=== PATIENT | female | born 1970 | race Caucasian/White ===

== ENCOUNTER 2022-06-25 18:09 | Emergency (ER) | payer MEDICARE, MEDICAID, SELFPAY ==
--- NOTE | 2022-06-25 18:22 | PC.NURSE ---
pt to ED room 2 via wc by CONNER Bravo and transported to [facility] without complications. pt hooked to monitor and EKG is being obtained.
--- NOTE | 2022-06-25 18:28 | ECG_ITS ---
APPROVED REPORT Exam: Resting ECG HR:59 bpm ECG Measurements Heart Rate 59 AXES GA 163 P 48 QRSd 109 QRS 36 QT 451 T 54 QTc 451 Conclusion SINUS BRADYCARDIA INCOMPLETE RIGHT BUNDLE BRANCH BLOCK [90+ ms QRS DURATION, TERMINAL R IN V1/V2, 40+ ms S IN I/aVL/V4/V5/V6] BORDERLINE ECG UNCONFIRMED REPORT Electronically signed by : Alfredo Lester MD 06/26/2022 21:07:53
--- NOTE | 2022-06-25 18:35 | HMH.EDGENADL ---
ED Disposition Clinical Impression: Chest wall pain, Atypical pneumonia Anemia Qualifiers: Anemia type: unspecified type Qualified Code(s): D64.9 - Anemia, unspecified Disposition: Home, Self-Care Condition on Discharge: Good Instructions: DI for Pneumonia -- Adult Additional Instructions: Tramadol as needed for pain. Tessalon as needed for cough. Zithromax, antibiotic, as prescribed. Follow-up with your primary care provider for further care of your chest wall pain, pneumonia, and anemia. Additional instructions for CONTROLLED SUBSTANCES: You have been prescribed a medication that is a controlled substance. Controlled substances include pain medications known as opiates and sedative nerve medications known as benzodiazepines. Tramadol, fioricet, and gabapentin are also controlled substances. Some common opiates include: Codeine (such as Tylenol #3) Hydrocodone (Vicodin, Lortab, Lorcet, [place]) Oxycodone (Percocet, Percodan, Oxycodone, Oxy IR) Some common benzodiazepines include: Diazepam (Valium) Lorazepam (Ativan) Alprazolam (Xanax) Clonazepam (Klonopin) Oxazepam (Serax) All of these controlled substances are highly addictive and frequently abused. Misuse can and frequently does lead to addiction as well as overdose and . Medication should be stored in a locked cabinet or other secure storage unit. Do not store the medication in a motor vehicle. Short term supplies, 3 days or less, are prescribed because of the highly addictive nature of the medication. Any of the controlled substance medication NOT taken should be disposed of properly and NOT SAVED. The recommended method of disposing of unused medications is: Place the medicines in a sealable plastic bag. If the medicine is a solid, crush it or add water to dissolve it. Add something undesirable (cat litter, coffee grounds, etc.) Dispose of sealed bag in household trash Do not flush or pour unused medicines down a sink or drain. Controlled substances should not be shared, given away or sold. Because of the addictive nature and frequent abuse, these medications are sometimes stolen. These medications should be kept in a safe place where they cannot be stolen. Do not keep them in your car or purse. Lost or stolen prescriptions for controlled substances WILL NOT BE REFILLED in this emergency department, regardless of whether a police report was filed. Prescriptions: Benzonatate [Benzonatate 100mg cap] 100 mg PO TIDP PRN #15 cap PRN Reason: Cough Transmission Status: Pending to [id number] Azithromycin [Zithromax 250mg tab] 250 mg PO DAILY #4 tab Transmission Status: Pending to [id number] Referrals: Shelly Gilbert [Primary Care Provider] - - Critical Care Critical Care Time: No Attestation: On , the high probability of a clinically significant, sudden or life threatening deterioration of the following system(s) required my full and direct attention, intervention and personal management. The time I documented below is in addition to time spent performing reported procedures but includes the following listed in this critical care notation. Medical Decision Making - Mateusz Inquiry Pt receiving controlled substance: No Vital Signs: 06/25/22 18:39 Temperature 98.6 F Temperature Source Oral Pulse Rate [Apical] 63 Respiratory Rate 18 Blood Pressure [Right Arm] 111/73 Blood Pressure Mean [Right Arm] 85 Blood Pressure Source [Right Arm] Automatic Cuff Blood Pressure Position [Right Arm] Sitting 02 Sat by Pulse Oximetry 95 Oxygen Delivery Method Room Air - Lab Data Lab Results 06/25/22 18:35: WBC 10.1, RBC 3.44 L, Hgb 9.9 L, Hct 33.2 L, MCV 96.4, MCH 28.7, MCHC 29.8 L, RDW 20.1 H, Plt Count 320, MPV 9.1, Neut % (Auto) 65.1, Lymph % (Auto) 24.3, [place] % (Auto) 6.9, Eos % (Auto) 2.7, Baso % (Auto) 1.0, Neut # (Auto) 6.5, Lymph # (Auto) 2.4, [place] # (Auto) 0.7, Eos # (Auto) 0.3, Baso # (Auto) 0.1
[2022-06-25 18:39] VITALS: BP 111/73; PULSE 63; RESP 18; TEMP 37; O2SAT 95; BMI 43.5
--- NOTE | 2022-06-25 18:50 | XR_ITS ---
PROCEDURE INFORMATION: Exam: XR Chest Exam date and time: 06/25/2022 7:16 PM Age: 51 years old Clinical indication: Sternal or substernal pain; Additional info: Chest pain SOA TECHNIQUE: Imaging protocol: Radiologic exam of the chest. Views: 1 view. COMPARISON: CR CXR CHEST(2 VIEWS-NOT PORTABLE) 04/18/2016 12:44 AM FINDINGS: Lungs: Low lung volumes with associated vascular crowding and bibasilar atelectasis. Stigmata of old granulomatous disease. Pleural spaces: Unremarkable. No pleural effusion. No pneumothorax. Heart/Mediastinum: Unremarkable. No cardiomegaly. Bones/joints: Unremarkable. IMPRESSION: No acute findings.
[2022-06-25 18:58] LABS: Microscopic, Urine URINE MICROSCOPIC (MICROSCOPIC)
--- NOTE | 2022-06-25 18:59 | PC.NURSE ---
KEIKO MORRELL at for pt julianal
[2022-06-25 19:00] LABS: Basophils # 0.1 K/mm3 (0-0.2); Eosinophils # 0.3 K/mm3 (0.0-0.4); Eosinophils % 2.7 % (0.1-12.0); Hematocrit 33.2 % (37.0-47.0); Hemoglobin 9.9 g/dL (12.2-16.2); Lymphocytes # 2.4 K/mm3 (0.7-4.5); Lymphocytes % 24.3 % (10-50); Mean Corpuscular HGB Conc 29.8 g/dL (31.8-35.4); Mean Corpuscular Hemoglobin 28.7 pg (27.0-31.2); Mean Corpuscular Volume 96.4 fl (81-99); Mean Platelet Volume 9.1 fl (7.4-10.4); Monocytes # 0.7 K/mm3 (0.1-1.0); Monocytes % 6.9 % (1.7-9.3); Neutrophils # 6.5 K/mm3 (1.8-7.8); Neutrophils % 65.1 % (37.0-80.0); Platelet Count 320 K/mm3 (142-424); Red Blood Count 3.44 M/mm3 (4.20-5.40); Red Cell Distribution Width 20.1 % (11.5-17.5); White Blood Count 10.1 K/mm3 (4.8-10.8)
[2022-06-25 19:04] LABS: Anion Gap 10.5 mEq/L (5-15); Blood Urea Nitrogen 6 mg/dl (7-17); Calcium 8.9 mg/dl (8.4-10.2); Carbon Dioxide 24 mmol/L (22.0-30.0); Chloride 104 mmol/L (98-107); Creatinine Clearance Estimated 123 mL/min (50-200); Estimated Glomerular Filt Rate 130 ml/min (>60); GFR (African American) 157 ML/MIN (>60); Glucose 115 mg/dl (74-100); Lactic Acid 1.8 mmol/L (0.7-2.1); Lipase 65 U/L (23-300); Magnesium 1.4 mg/dl (1.6-2.3); Potassium 3.5 mmoL/L (3.5-5.1); Sodium 135 mmol/L (136-145)
--- NOTE | 2022-06-25 19:08 | CT_ITS ---
PROCEDURE INFORMATION: Exam: CTA Chest With Contrast Exam date and time: 06/25/2022 7:10 PM Age: 51 years old Clinical indication: Pain; Chest pressure; Additional info: Chest injury, hemoptysis TECHNIQUE: Imaging protocol: Computed tomographic angiography of the chest with contrast. 3D rendering (Not supervised by radiologist): MIP and/or 3D reconstructed images were created by the technologist. Radiation optimization: All CT scans at this facility use at least one of these dose optimization techniques: automated exposure control; mA and/or kV adjustment per patient size (includes targeted exams where dose is matched to clinical indication); or iterative reconstruction. Contrast material: ISOVUE 307; Contrast volume: 70 ml; Contrast route: INTRAVENOUS (IV); COMPARISON: CR CXR CHEST(2 VIEWS-NOT PORTABLE) 04/18/2016 12:44 AM FINDINGS: Pulmonary arteries: Enlarged pulmonary arteries likely represent chronic pulmonary arterial hypertension. No pulmonary emboli. Aorta: The aorta demonstrates mild atherosclerotic disease. Lungs: Mild scarring and atelectasis in the lower lungs. Scattered ground-glass pulmonary opacities are favored to represent atypical pneumonia, such as COVID-19. Pleural spaces: Unremarkable. No pneumothorax. No pleural effusion. Heart: Borderline cardiomegaly. Lymph nodes: Unremarkable. No enlarged lymph nodes. Liver: Hepatic steatosis. Gallbladder and bile ducts: Gallbladder is absent. Kidneys and ureters: Low attenuation renal lesions measuring up to 2.5 cm in diameter are incompletely characterized, but are likely cysts. No followup imaging is warranted. Bones/joints: Old bilateral rib fractures. Soft tissues: Unremarkable. Other findings: Stigmata of old granulomatous disease. IMPRESSION: 1. No pulmonary emboli. 2. Scattered ground-glass pulmonary opacities are favored to represent atypical pneumonia, such as COVID-19. 3. Hepatic steatosis. COMMENTS: Consistent with the [employer]'s Incidental Findings Committee white paper (J Am Alessandra Radiol 2018): Any incidental renal lesion less than 1 cm or classified as too small to characterize, or any incidental cystic renal lesion characterized as simple-appearing, is likely benign. No follow-up imaging is recommended for these lesions per consensus recommendations based on imaging criteria.
[2022-06-25 19:09] LABS: Appearance,Urine CLEAR (Clear); Bilirubin,Urine Negative (Negative); Blood, Urine Negative (Negative); Color,Urine YELLOW (Yellow); Glucose,Urine (UA) Negative (Negative); Ketones,Urine Negative (Negative); Leukocyte Esterase,Urine TRACE (Negative); Nitrate,Urine Negative (Negative); Protein,Urine Negative (Negative); Specific Gravity, Urine <= 1.005 (1.005-1.030); Urobilinogen,Urine 0.2 EU/dl (0.2)
[2022-06-25 19:09] LABS: C-Reactive Protein 15.6 mg/L (0-4)
[2022-06-25 19:13] LABS: Coronavirus 19, PCR Not Detected (NotDetected); Influenza A, PCR Not Detected (NotDetected); Influenza B, PCR Not Detected (NotDetected)
[2022-06-25 19:18] LABS: Alanine Aminotransferase 26 U/L (12-78); Aspartate Amino Transferase 51 U/L (14-36)
[2022-06-25 19:19] LABS: Ammonia 25 umol/L (9-30)
[2022-06-25 19:19] LABS: Albumin Level 3.6 g/dl (3.5-5.0); Alkaline Phosphatase 116 U/L (38-126); Bilirubin,Direct 0.7 mg/dl (0.0-0.4); Bilirubin,Total 0.7 mg/dl (0.2-1.3); Total Protein,Serum 7.6 g/dl (6.3-8.2)
[2022-06-25 19:20] LABS: Troponin I < 0.01 ng/ml (0.00-0.034)
[2022-06-25 19:23] LABS: Procalcitonin 0.086 ng/mL (0.0-2.0)
[2022-06-25 19:27] LABS: Erythrocyte Sedimentation Rate 44 mm/hr (0-30)
[2022-06-25 19:53] LABS: Bacteria,Urine Trace /lpf
[2022-06-25 19:59] LABS: NT Pro Brain Natriuretic Pep. 55.7 pg/mL (0-125)
--- NOTE | 2022-06-25 20:27 | PC.NURSE ---
Family at BS
[2022-06-25 20:45] VITALS: BP 110/70; PULSE 60; RESP 16; TEMP 36.8; O2SAT 99
[2022-06-25 21:22] LABS: Amphetamine/Metha Screen,Urine Negative ng/ml (<1000); Barbiturates Screen,Urine Negative ng/ml (<200)
[2022-06-25 21:23] LABS: Benzodiazepines Screen,Urine Negative ng/ml (<200); Cannabinoid Screen,Urine Negative ng/ml (<50)
[2022-06-25 21:24] LABS: Cocaine Screen,Urine Negative ng/ml (<300)
[2022-06-25 21:25] LABS: Methadone Screen,Urine Positive ng/ml (<300); Opiate Screen,Urine Negative ng/ml (<300)
[2022-06-25 21:29] LABS: Phencyclidine Screen,Urine Negative ng/ml (<25)
== END 2022-06-25 20:46 | disposition home or self-care (01) ==
PROVIDERS: Emergency Provider Emergency Medicine; PCP Nurse Practitioner
DX: R07.82 Intercostal pain (principal); J18.9 Pneumonia, unspecified organism; D64.9 Anemia, unspecified; W19.XXXD Unspecified fall, subsequent encounter; Z88.5 Allergy status to narcotic agent; F11.90 Opioid use, unspecified, uncomplicated; L98.9 Disorder of the skin and subcutaneous tissue, unspecified; K76.0 Fatty (change of) liver, not elsewhere classified; Z88.6 Allergy status to analgesic agent; F41.9 Anxiety disorder, unspecified; F32.A Depression, unspecified; Z72.0 Tobacco use
CPT/HCPCS: 71045; 71275; 80048; 80076; 80305; 81001; 82140; 83605; 83690; 83735; 83880; 84145; 84484; 85025; 85651; 86140; 93005; 96365; 99284; C9803; Q9967; U0003; U0005

== ENCOUNTER 2022-07-26 20:51 | Emergency (ER) | payer MEDICARE, MEDICAID, SELFPAY ==
[2022-07-26] VITALS (8 sets, daily range): BP systolic 91–119; BP diastolic 50–82; PULSE 67–79; RESP 16–18; TEMP 36.6–37.1; O2SAT 93–99; BMI 40.3
--- NOTE | 2022-07-26 21:00 | ECG_ITS ---
APPROVED REPORT Exam: Resting ECG HR:72 bpm ECG Measurements Heart Rate 72 AXES FL 178 P 51 QRSd 104 QRS 55 QT 400 T 52 QTc 425 Conclusion SINUS RHYTHM LOW QRS VOLTAGE IN PRECORDIAL LEADS [QRS DEFLECTION < 1.0 mV IN CHEST LEADS] INCOMPLETE RIGHT BUNDLE BRANCH BLOCK [90+ ms QRS DURATION, TERMINAL R IN V1/V2, 40+ ms S IN I/aVL/V4/V5/V6] BORDERLINE ECG INTERPRETATION BASED ON A DEFAULT AGE OF 40 YEARS UNCONFIRMED REPORT Electronically signed by : Alfredo Lester MD 07/31/2022 11:23:27
--- NOTE | 2022-07-26 21:06 | XR_ITS ---
PROCEDURE INFORMATION: Exam: XR Chest Exam date and time: 07/26/2022 9:11 PM Age: 51 years old Clinical indication: Sternal or substernal pain; Additional info: Cp TECHNIQUE: Imaging protocol: Radiologic exam of the chest. Views: 1 view. COMPARISON: CR XR CHEST PORTABLE 06/25/2022 7:16 PM FINDINGS: Lungs: Unremarkable. No consolidation. Pleural spaces: Unremarkable. No pleural effusion. No pneumothorax. Heart/Mediastinum: Cardiomegaly. Bones/joints: Unremarkable. IMPRESSION: No acute findings.
--- NOTE | 2022-07-26 21:10 | CT_ITS ---
PROCEDURE INFORMATION: Exam: CT Abdomen And Pelvis With Contrast Exam date and time: 07/26/2022 9:43 PM Age: 51 years old Clinical indication: Abdominal pain; Other: Pelvis and groin area left; Prior surgery; Surgery date: 6+ months; Surgery type: Tubal ligation gb; Additional info: Groin pain left TECHNIQUE: Imaging protocol: Computed tomography of the abdomen and pelvis with contrast. Radiation optimization: All CT scans at this facility use at least one of these dose optimization techniques: automated exposure control; mA and/or kV adjustment per patient size (includes targeted exams where dose is matched to clinical indication); or iterative reconstruction. Contrast material: ISOVUE; Contrast volume: 75 ml; Contrast route: IV; COMPARISON: CT ANGIO CHEST PE PROTOCOL 06/25/2022 7:10 PM FINDINGS: Liver: Normal. No mass. Gallbladder and bile ducts: Cholecystectomy. Pancreas: Normal. No ductal dilation. Spleen: Normal. No splenomegaly. Adrenal glands: Normal. No mass. Kidneys and ureters: Parapelvic cyst in the left kidney 2 cm. No hydronephrosis. Stomach and bowel: Unremarkable. No obstruction. No mucosal thickening. Appendix: Appendix not seen but no secondary signs of appendicitis. Intraperitoneal space: Unremarkable. No free air. No significant fluid collection. Vasculature: Unremarkable. No abdominal aortic aneurysm. Lymph nodes: Unremarkable. No enlarged lymph nodes. Urinary bladder: Unremarkable as visualized. Reproductive: Unremarkable as visualized. Bones/joints: Unremarkable. No acute fracture. Soft tissues: Unremarkable. IMPRESSION: No acute findings. COMMENTS: Consistent with the [employer]'s Incidental Findings Committee white paper (J Am Alessandra Radiol 2018): Any incidental renal lesion less than 1 cm or classified as too small to characterize, or any incidental cystic renal lesion characterized as simple-appearing, is likely benign. No follow-up imaging is recommended for these lesions per consensus recommendations based on imaging criteria.
[2022-07-26 21:14] LABS: Basophils # 0.1 K/mm3 (0-0.2); Basophils % 1.6 % (0.1-2.0); Eosinophils # 0.2 K/mm3 (0.0-0.4); Eosinophils % 2.4 % (0.1-12.0); Hematocrit 31.3 % (37.0-47.0); Hemoglobin 9.6 g/dL (12.2-16.2); Lymphocytes # 2.4 K/mm3 (0.7-4.5); Lymphocytes % 26.9 % (10-50); Mean Corpuscular HGB Conc 30.8 g/dL (31.8-35.4); Mean Corpuscular Hemoglobin 28.5 pg (27.0-31.2); Mean Corpuscular Volume 92.5 fl (81-99); Mean Platelet Volume 8.4 fl (7.4-10.4); Monocytes # 0.8 K/mm3 (0.1-1.0); Monocytes % 9.5 % (1.7-9.3); Neutrophils # 5.2 K/mm3 (1.8-7.8); Neutrophils % 59.6 % (37.0-80.0); Platelet Count 403 K/mm3 (142-424); Red Blood Count 3.38 M/mm3 (4.20-5.40); Red Cell Distribution Width 19.5 % (11.5-17.5); White Blood Count 8.8 K/mm3 (4.8-10.8)
[2022-07-26 21:17] LABS: Anion Gap 13.4 mEq/L (5-15); Blood Urea Nitrogen 4 mg/dl (7-17); Calcium 8.8 mg/dl (8.4-10.2); Carbon Dioxide 22 mmol/L (22.0-30.0); Chloride 103 mmol/L (98-107); Creatinine Clearance Estimated 236 mL/min (50-200); Estimated Glomerular Filt Rate 130 ml/min (>60); GFR (African American) 157 ML/MIN (>60); Glucose 109 mg/dl (74-100); Magnesium 1.4 mg/dl (1.6-2.3); Potassium 4.4 mmoL/L (3.5-5.1); Sodium 134 mmol/L (136-145)
[2022-07-26 21:22] LABS: C-Reactive Protein 19.8 mg/L (0-4)
[2022-07-26 21:36] LABS: Procalcitonin 0.091 ng/mL (0.0-2.0)
[2022-07-26 21:37] LABS: Troponin I < 0.01 ng/ml (0.00-0.034)
[2022-07-26 21:43] LABS: Erythrocyte Sedimentation Rate 53 mm/hr (0-30)
--- NOTE | 2022-07-26 21:43 | PC.NURSE ---
pt going to scan at this time
--- NOTE | 2022-07-26 22:01 | PC.NURSE ---
When patient was asked if she takes any recreational drugs she stated not typically, but I was hurtin so bad that I bought a couple pills of someone and took them before coming in . Pt states she does not know which pills she took, that whoever she bought them off of just told her they were pain pills.
[2022-07-26 22:07] LABS: Microscopic, Urine URINE MICROSCOPIC (MICROSCOPIC)
[2022-07-26 22:09] LABS: Appearance,Urine CLEAR (Clear); Bilirubin,Urine Negative (Negative); Blood, Urine Negative (Negative); Color,Urine YELLOW (Yellow); Glucose,Urine (UA) Negative (Negative); Ketones,Urine Negative (Negative); Leukocyte Esterase,Urine TRACE (Negative); Nitrate,Urine Negative (Negative); Protein,Urine Negative (Negative); Specific Gravity, Urine <= 1.005 (1.005-1.030); Urobilinogen,Urine 0.2 EU/dl (0.2)
[2022-07-26 22:17] LABS: Bacteria,Urine Trace /lpf; Squamous Epithelial Cell,Urine Occasional #/hpf (0-5); WBC,Urine Occasional #/hpf (0-3)
[2022-07-26 22:21] LABS: Barbiturates Screen,Urine Negative ng/ml (<200)
[2022-07-26 22:22] LABS: Amphetamine/Metha Screen,Urine Negative ng/ml (<1000); Benzodiazepines Screen,Urine Negative ng/ml (<200)
[2022-07-26 22:23] LABS: Cannabinoid Screen,Urine Negative ng/ml (<50)
[2022-07-26 22:24] LABS: Cocaine Screen,Urine Negative ng/ml (<300); Methadone Screen,Urine Positive ng/ml (<300)
[2022-07-26 22:25] LABS: Opiate Screen,Urine Negative ng/ml (<300); Phencyclidine Screen,Urine Negative ng/ml (<25)
--- NOTE | 2022-07-26 23:43 | HMH.EDCP ---
Discharge Plan Disposition Patient Disposition: Home, Self-Care Chief Complaint: Chest Pain Prescriptions Prescriptions: No Action ondansetron HCl [Zofran] 4 mg Tablet 4 mg PO Q6H PRN (Reason: Nausea) metoprolol succinate 100 mg Tablet Extended Release 24 Hr 100 mg PO DAILY hydroxyzine HCl 50 mg Tablet 50 mg PO TID omeprazole 40 mg Capsule,Delayed Release(Dr/Ec) 40 mg PO DAILY pantoprazole 40 mg Tablet,Delayed Release (Dr/Ec) 40 mg PO DAILY lisinopril 10 mg Tablet 10 mg PO DAILY trazodone 300 mg Tablet 300 mg PO HS hydrochlorothiazide 25 mg Tablet 25 mg PO DAILY albuterol sulfate 90 mcg/actuation Hfa Aerosol Inhaler 1 inh INHALATION QID PRN (Reason: Wheezing) fluticasone propionate [Flonase] 50 mcg/actuation [place],Suspension 1 spray INTRANASAL BID Rx Instructions: administer into each nostril fluticasone furoate-vilanterol [Breo Ellipta] 100-25 mcg/dose Blister With Device 1 inh INHALATION DAILY clindamycin HCl 300 mg Capsule 300 mg PO TID permethrin 5 % Cream 1 applic TOPICAL Q14D Rx Instructions: apply second treatment 14 days after first treatment if live lice remain venlafaxine 150 mg Capsule,Extended Release 24hr 150 mg PO DAILY sumatriptan succinate 50 mg Tablet 50 mg PO Q2H PRN (Reason: migraines) Rx Instructions: do not exceed 4 doses per 24 hrs famotidine [Pepcid] 20 mg Tablet 20 mg PO DAILY furosemide [Lasix] 20 mg Tablet 20 mg PO DAILY clotrimazole [Clotrimazole Anti-Fungal] 1 % Cream 1 applic TOPICAL BID Spiriva Respimat 2.5 mcg/actuation Mist 2 puff INHALATION DAILY Referrals Follow up/Referrals: Provider,Referral, MD [Primary Care Provider] - See instructions Clinical Impressions Clinical Impression: Atypical chest pain, Abnormal drug screen Instructions Patient Instructions: DI for Atypical Chest Pain Discharge ED Provider: Bridger Boland Chest Pain HPI General Chief Complaint: Chest Pain Stated Complaint: CP/GROIN PAIN Time Seen by Provider: 07/26/22 23:43 Mode of Arrival: Ambulatory Source of Information: Patient and Medical Record Limitations: No Limitations Description of Symptoms (Recalled from ER Triage Doc. by RN): Pt arrives pov c co chest pain for prior two months following a fall from her shower for which she has been seen in various ER's since then for the chest pain and she has not had a definitive diagnosis for which she is comfortable. Pt states that she is also having groin pain that she has had for the prior 6 days. Pt was seen in both [place] [facility] and by her pcp who told her it was likely from cellulitis on her legs and was told to continue with her antibiotics that she has been taking. History of Present Illness HPI narrative: pt with ongoing chest pain with hx of same - also has lower ext edema and is treated and followed by pcp - pt gives meds from friend - denied aly - complaint: chest pain Onset (ago): day(s) Duration: intermittent Activity at onset: during rest Pain location: left chest Severity: mild Quality: dull Pain radiation: none Risk Factors for CAD: Hypertension, Family Hx of CAD and Smoking Treatments prior to or on arrival for Cardiac Chest Pain: none VASHTI Score for Non-Stemi Age of Patient: 50-59 years old Heart Rate: 70-89 bpm Systolic Blood Pressure: 80-99 mmHg Serum Creatinine: 0.40-0.79 mg/dl CHF [place] Class: I-No CHF Other Risk Factors: None Non-Stemi Risk Score: 107 Related Data On Oral Contraceptives: No Home Medications Medication Instructions Recorded Confirmed albuterol sulfate 90 mcg/actuation 1 inh inhalation QID PRN Wheezing 07/26/22 07/26/22 aerosol inhaler clindamycin HCl 300 mg capsule 300 mg PO TID cellulitis 07/26/22 07/26/22 clotrimazole 1 % topical cream 1 applic topical BID antifungal 07/26/22 07/26/22 famotidine 20 mg tablet (Pepcid) 20 mg PO DAILY gern 07/26/22 0
== END 2022-07-27 00:06 | disposition home or self-care (01) ==
PROVIDERS: Emergency Provider Emergency Medicine
DX: R07.9 Chest pain, unspecified (principal); R82.5 Elevated urine levels of drugs, medicaments and biological substances; Z79.899 Other long term (current) drug therapy; Z88.5 Allergy status to narcotic agent; Z88.6 Allergy status to analgesic agent; Z72.0 Tobacco use; I10 Essential (primary) hypertension; D64.9 Anemia, unspecified
CPT/HCPCS: 71045; 74177; 80048; 80305; 81001; 83735; 84145; 84484; 85025; 85651; 86140; 93005; 96365; 99285; Q9967